=== PATIENT | female | born 1955 | race Caucasian/White ===

== ENCOUNTER 2018-04-01 19:36 | Emergency (ER) | payer MEDICAID, SELFPAY ==
[2018-04-01 20:47] VITALS: BMI 27.0
[2018-04-01] MEDS ORDERED: Sodium Chloride 0.9% 1,000 ML IV STA (20:48)
--- NOTE | 2018-04-01 21:00 | ED PDOC ---
Arrival/HPI - General Chief Complaint: Dizziness/Lightheaded Time Seen by Provider: 04/01/18 20:30 Historian: Patient - History of Present Illness Narrative History of Present Illness (Text): 04/01/18 20:52 63 year old female, whose history includes lumpectomy 6 years ago for breast cancer that is now recurring, presents to the Emergency department complaining of dizziness and vomiting. Patient states she woke up in the middle of the night with vomiting and room-spinning. Patient believes she may have eaten bad food; however, she reports experiencing a similar episode last week. Patient is scheduled for right mastectomy next week. Today, she went to [facility] to get a CT scan of the chest, abdomen, and pelvis with contrast as part of preparation for next week. Patient has not been able to keep any food down. Patient denies any fever, chills, chest pain, shortness of breath, diarrhea, urinary symptoms, back pain, neck pain, headache, or any other complaints. Time/Duration: Other (less than 24 hours) Symptom Onset: Sudden Symptom Course: Unchanged Activities at Onset: Rest Context: Home Past Medical History - Provider Review Nursing Documentation Reviewed: Yes - Endocrine/Metabolic Hx Diabetes Mellitus Type 1: Yes - Hematological/Oncological Hx Cancer: Yes (Breast CA) - Psychiatric Hx Substance Use: No - Surgical History Other/Comment: R lumpectomy - Anesthesia Hx Anesthesia: Yes Family/Social History - Physician Review Nursing Documentation Reviewed: Yes Family/Social History: Unknown Family HX Smoking Status: 2nd hand Hx Alcohol Use: No (6 years ago) Hx Substance Use: No Allergies/Home Meds Allergies/Adverse Reactions: Allergies No Known Allergies Allergy (Verified 04/01/18 20:47) Home Medications: Home Meds Medication Instructions Recorded Confirmed Fluticasone/Salmeterol [Advair 1 puff INH DAILY 04/01/18 04/01/18 250-50 Diskus] Insulin Aspart, Recombinant 15 units SQ BID 04/01/18 04/01/18 [Novolog] Insulin Degludec [Tresiba 14 units SQ DAILY 04/01/18 04/01/18 Flextouch U-100] Liraglutide [Victoza 2-Vikas] 1.8 mg SQ DAILY 04/01/18 04/01/18 Meclizine [Meclizine*] 25 mg PO PRN PRN 04/01/18 04/01/18 Review of Systems - Physician Review All systems were reviewed & negative as marked: Yes - Review of Systems Constitutional: absent: Fevers, Night Sweats Respiratory: absent: SOB Cardiovascular: absent: Chest Pain Gastrointestinal: Nausea, Vomiting. absent: Diarrhea Genitourinary Female: absent: Dysuria Musculoskeletal: absent: Back Pain, Neck Pain Neurological: Dizziness. absent: Headache Physical Exam Vital Signs Reviewed: Yes Vital Signs Temp Pulse Resp BP Pulse Ox 04/01/18 22:30 88 16 110/76 98 04/01/18 20:38 97.7 F 94 H 18 96/68 L 100 Temperature: Afebrile Blood Pressure: Hypotensive Pulse: Tachycardic Respiratory Rate: Normal Appearance: Positive for: Well-Appearing, Non-Toxic, Comfortable Pain Distress: None Mental Status: Positive for: Alert and Oriented X 3 - Systems Exam Head: Present: Atraumatic, Normocephalic Pupils: Present: PERRL Extroacular Muscles: Present: Other (nystagmus) Conjunctiva: Present: Normal Mouth: Present: Moist Mucous Membranes Neck: Present: Normal Range of Motion Respiratory/Chest: Present: Clear to Auscultation, Good Air Exchange. No: Respiratory Distress, Accessory Muscle Use Cardiovascular: Present: Regular Rate and Rhythm, Normal S1, S2. No: Murmurs Abdomen: No: Tenderness, Distention, Peritoneal Signs Back: Present: Normal Inspection Upper Extremity: Present: Normal Inspection. No: Cyanosis, Edema Lower Extremity: Present: Normal Inspection. No: Edema Neurological: Present: GCS=15, CN II-XII Intact, Speech Normal Skin: Present: Warm, Dry, Normal Color. No: Rashes Psychiatric: Present: Alert, Oriented x 3, Normal Insight, Normal Concentration Medical Decision Making ED Course and Treatment: 04/01/18 21:06 Impression: 63 year old female presents to the Emergency department complaining of dizziness and vomiting. Plan: -- CT scan of head -- Chest xray -- Blood culture, urine culture -- Urinalysis -- VBG -- Labs -- Antivert, Zofran, Sodium Chloride IV fluids -- Reassess and disposition Prior Visits: Notes and results from previous visits were reviewed. Progress Notes: EXAM: CT Head Without Intravenous Contrast Dictated and Authenticated by: Mariajose Brenner MD 04/01/2018 10:53 PM IMPRESSION: No acute intracranial abnormality. Mild chronic microvascular changes. 04/01/18 23:43 CXR Impression: As read by me, no acute disease. EXAM: US Abdomen Complete Dictated and Authenticated by: Cash Lizama MD 04/02/2018 12:05 AM IMPRESSION: Normal abdominal ultrasound. - Lab Interpretations Lab Results: 04/01/18 21:25 04/01/18 21:25 Lab Results 04/01/18 21:50: pO2 48, VBG pH 7.37, VBG pCO2 45.0, VBG HCO3 26.0, VBG Total CO2 27.4, VBG O2 Sat (Calc) 89.5 H, VBG Base Excess 0.3, VBG Potassium 4.2, Glucose 197 H, Lactate 1.3, FiO2 21.0, Sodium 138.0, Chloride 104.0, Venous Blood Potassium 4.2 04/01/18 21:25: Sodium 143, Potassium 4.2, Chloride 102, Carbon Dioxide 25, Anion Gap 20, BUN 13, Creatinine 0.5 L, Est GFR ( Amer) > 60, Est GFR ( Non-Af Amer) > 60, Random Glucose 187 H, Calcium 9.7, Total Bilirubin 0.9, AST 44 H, ALT 47, Alkaline Phosphatase 70, Lactate Dehydrogenase 542, Total Creatine Kinase 52, Troponin I < 0.01, NT-Pro-B Natriuret Pep 38.2, Total Protein 8.8 H, Albumin 4.8, Globulin 4.0, Albumin/Globulin Ratio 1.2, Lipase 376 H 04/01/18 21:25: PT 10.7, INR 0.94 04/01/18 21:25: WBC 5.8, RBC 5.21, Hgb 13.4, Hct 39.8, MCV 76.4 L, MCH 25.7, MCHC 33.7, RDW 14.4, Plt Count 350, MPV 10.5, Gran % 74.6 H, Lymph % (Auto) 22.0 , Woods % (Auto) 2.9, Eos % (Auto) 0.3 L, Baso % (Auto) 0.2, Gran # 4.34, Lymph # (Auto) 1.3, Woods # (Auto) 0.2, Eos # (Auto) 0.0, Baso # (Auto) 0.01 I have reviewed the lab results: Yes - RAD Interpretation Radiology Orders: 04/01/18 20:50 HEAD W/O CONTRAST [CT] Stat CHEST PORTABLE [RAD] Stat 04/01/18 23:05 ABDOMEN COMPLETE [US] Stat - Medication Orders Current Medication Orders: Discontinued Medications Sodium Chloride (Sodium Chloride 0.9%) 1,000 mls @ 999 mls/hr IV .Q1H1M STA Stop: 04/01/18 21:48 Last Admin: 04/01/18 21:29 Dose: 999 mls/hr eMAR Start Stop Document 04/01/18 21:29 MS (Rec: 04/01/18 21:30 [facility] [id number] Intravenous Solution Start Date 04/01/18 Start Time 21:29 End Date 04/01/18 End time 22:29 Total Infusion Time 60 Meclizine HCl (Antivert) 25 mg PO STAT STA Stop: 04/01/18 20:49 Last Admin: 04/01/18 21:29 Dose: 25 mg Ondansetron HCl (Zofran Inj) 4 mg IVP STAT STA Stop: 04/01/18 20:49 Last Admin: 04/01/18 21:30 Dose: 4 mg IVP Administration Document 04/01/18 21:30 MS (Rec: 04/01/18 21:30 MS [facility] [id number]) Charges for Administration # of IVP Administrations 1 - Scribe Statement The provider has reviewed the documentation as recorded by the Scribe Thomas Bello All medical record entries made by the Scribe were at my direction and personally dictated by me. I have reviewed the chart and agree that the record accurately reflects my personal performance of the history, physical exam, medical decision making, and the department course for this patient. I have also personally directed, reviewed, and agree with the discharge instructions and disposition. Disposition/Present on Arrival - Present on Arrival Any Indicators Present on Arrival: No History of DVT/PE: No History of Uncontrolled Diabetes: No Urinary Catheter: No History of Decub. Ulcer: No History Surgical Site Infection Following: None - Disposition Have Diagnosis and Disposition been Completed?: Yes Diagnosis: Vertigo, Elevated lipase, Vomiting Disposition: HOME/ ROUTINE Disposition Time: 00:17 Patient Plan: Discharge Condition: GOOD Discharge Instructions (ExitCare): Vertigo (a Type of Dizziness) (DC), Nausea and Vomiting, Adult (DC) Additional Instructions: Mrs Packer - Sorry that you have to go through all this right now. Zofran is for vomiting or nausea. Antivert is for the room spinning or vertigo. Return to us if any problems Good Vida with your Surgery..... Best- Dr. Francisco Melendez Referrals: Casey Haque MD [Primary Care Provider] - Follow up with primary Forms: [employer] (Danish), WORK NOTE
[2018-04-01 21:54] LABS: ALB/GLOB RATIO 1.2 (1.1-1.8); ALBUMIN 4.8 g/dL (3.0-4.8); CALCIUM 9.7 mg/dL (8.4-10.5); GFR AFRICAN-AMERICAN > 60; GFR NON-AFRICAN AMERICAN > 60; LIPASE 376 U/L (23-300)
[2018-04-01 21:59] LABS: VENOUS BLOOD GAS BASE EXCESS 0.3 mmol/L (0.0-2.0); VENOUS BLOOD GAS PO2 48 mm/Hg (30-55); VENOUS BLOOD PH 7.37 (7.32-7.43)
[2018-04-01 22:00] LABS: ALT/SGPT 47 U/L (7-56); AST/SGOT 44 U/L (14-36); BASO # 0.01 K/mm3 (0.0-2.0); BASO % 0.2 % (0.0-3.0); BLOOD UREA NITROGEN 13 mg/dL (7-21); EOS % 0.3 % (1.5-5.0); GRAN # 4.34 (1.4-6.5); GRAN % 74.6 % (50.0-68.0); HEMOGLOBIN 13.4 g/dL (12.0-16.0); LYMPH # 1.3 (1.2-3.4); MEAN CELL VOLUME 76.4 fl (80.0-105.0); MEAN CORPUSCULAR HEMOGLOBIN 25.7 pg (25.0-35.0); MEAN CORPUSCULAR HGB CONC 33.7 g/dl (31.0-37.0); MEAN PLATELET VOLUME 10.5 fl (7.0-11.0); MONO # 0.2 (0.1-0.6); MONO % 2.9 % (1.0-6.0); RBC 5.21 10^6/uL (3.5-6.1); RED CELL DISTRIBUTION WIDTH 14.4 % (11.5-14.5); WHITE BLOOD COUNT 5.8 10^3/ul (4.5-11.0)
[2018-04-01 22:06] LABS: B-TYPE NATRIURETIC PEPTIDE 38.2 pg/mL (0-450); TROPONIN I < 0.01 ng/mL
[2018-04-01 22:08] LABS: INR 0.94 (0.93-1.08); PROTHROMBIN TIME 10.7 SECONDS (9.4-12.5)
[2018-04-01 23:32] VITALS: RESP 16; O2SAT 98
[2018-04-02 01:48] VITALS: BP 112/70; PULSE 82; TEMP 97.9
--- NOTE | 2018-04-02 08:23 | CT ---
PROCEDURE: CT HEAD WITHOUT CONTRAST. HISTORY: Vertigo, Breast Cancer, COMPARISON: None available. TECHNIQUE: Axial computed tomography images were obtained through the head/brain without intravenous contrast. Radiation dose: Total exam DLP = 958 mGy-cm. This CT exam was performed using one or more of the following dose reduction techniques: Automated exposure control, adjustment of the mA and/or kV according to patient size, and/or use of iterative reconstruction technique. FINDINGS: HEMORRHAGE: No intracranial hemorrhage. BRAIN: No mass effect or edema. Mild chronic microvascular changes VENTRICLES: Unremarkable. No hydrocephalus. CALVARIUM: Unremarkable. PARANASAL SINUSES: Unremarkable as visualized. No significant inflammatory changes. MASTOID AIR CELLS: Unremarkable as visualized. No inflammatory changes. OTHER FINDINGS: The report concurs with the preliminary [facility] report IMPRESSION: No acute intracranial findings
--- NOTE | 2018-04-02 10:46 | US ---
HISTORY: ? Gallstone Pancreatitis ? COMPARISON: None. TECHNIQUE: Sonographic evaluation of the abdomen. FINDINGS: LIVER: Measures 14.4 cm. Normal echogenicity of the liver parenchyma. No mass. No intrahepatic bile duct dilatation. GALLBLADDER: Unremarkable. No gallstones. COMMON BILE DUCT: Measures 5 mm. No stones. No dilatation. PANCREAS: Unremarkable as visualized. No mass. No ductal dilatation. RIGHT KIDNEY: Measures 10.3cm. Normal echogenicity. No calculus, mass, or hydronephrosis. LEFT KIDNEY: Measures 10.1cm. Normal echogenicity. No calculus, mass, or hydronephrosis. SPLEEN: Normal in size and contour. No mass. AORTA: No aneurysmal dilatation. IVC: Unremarkable. OTHER FINDINGS: None. IMPRESSION: Unremarkable examination. No evidence of cholecystitis or pancreatitis. Preliminary interpretation of this examination was reported by [facility] at 12:05 a.m. on 04/02/2018. There is concurrence of this report with the preliminary interpretation.
--- NOTE | 2018-04-02 10:57 | RAD ---
HISTORY: vomiting/cough COMPARISON: No prior. FINDINGS: LUNGS: No active pulmonary disease. PLEURA: No significant pleural effusion identified, no pneumothorax apparent. CARDIOVASCULAR: Normal. OSSEOUS STRUCTURES: No significant abnormalities. VISUALIZED UPPER ABDOMEN: Normal. OTHER FINDINGS: None. IMPRESSION: No active disease.
== END 2018-04-02 01:19 | disposition home or self-care (01) ==
LOC: ED 19:36 → EDBD 19:36 → ED 04-02 01:19
DX: R11.10 Vomiting, unspecified (principal); R42 Dizziness and giddiness; R74.8 Abnormal levels of other serum enzymes; C50.919 Malignant neoplasm of unspecified site of unspecified female breast
CPT/HCPCS: 70450; 71045; 76700; 80053; 82550; 82803; 83615; 83690; 83880; 84484; 85025; 85610; 87040; 96361; 96374; 99285; J2405; J7030

== ENCOUNTER 2018-08-27 10:50 | Emergency (ER) | payer MEDICAID ==
[2018-08-27 11:16] VITALS: BMI 24.5
--- NOTE | 2018-08-27 11:18 | ED PDOC ---
Arrival/HPI - General Time Seen by Provider: 08/27/18 11:09 Historian: Patient, Family - History of Present Illness Narrative History of Present Illness (Text): 08/27/18 11:18 Patient is a 63 year old female who presents to the Emergency department with he r daughter for left lower extremity cramping which started last night. Per daughter, patient started experiencing severe left lower extremity cramping that lasted for several hours last night. Patient states that the pain has improved but not resolved since last night, and experiences pain when placing weight on the foot. She notes that last night her left foot felt warm, and per daughter the veins in her foot appeared swollen but now are normal and equal to contralateral side. Patient took Aspirin 325mg three times last night with last dose taken at 23:30. Patient denies fevers, chills, cough, shortness of breath, chest pain, dyspnea on exertion, abdominal pain, nausea, vomiting, diarrhea, back pain, neck pain, headache, dizziness, or any other complaint. Time/Duration: Other (Last night) Symptom Onset: Sudden Symptom Course: Improving Quality: Cramping Context: Home Past Medical History - Provider Review Nursing Documentation Reviewed: Yes - Endocrine/Metabolic Hx Diabetes Mellitus Type 1: Yes - Hematological/Oncological Hx Cancer: Yes (Breast CA) - Psychiatric Hx Substance Use: No - Surgical History Other/Comment: R lumpectomy - Anesthesia Hx Anesthesia: Yes Family/Social History - Physician Review Nursing Documentation Reviewed: Yes Family/Social History: No Known Family HX Smoking Status: 2nd hand Hx Alcohol Use: No (6 years ago) Hx Substance Use: No Allergies/Home Meds Allergies/Adverse Reactions: Allergies No Known Allergies Allergy (Verified 08/27/18 12:03) Home Medications: Home Meds Medication Instructions Recorded Confirmed Fluticasone/Salmeterol [Advair 1 puff INH DAILY 04/01/18 08/27/18 250-50 Diskus] Insulin Aspart, Recombinant 15 units SQ BID 04/01/18 08/27/18 [Novolog] Insulin Degludec [Tresiba 14 units SQ DAILY 04/01/18 08/27/18 Flextouch U-100] Liraglutide [Victoza 2-Vikas] 1.8 mg SQ DAILY 04/01/18 08/27/18 Meclizine [Meclizine*] 25 mg PO PRN PRN 04/01/18 08/27/18 Review of Systems - Physician Review All systems were reviewed & negative as marked: Yes - Review of Systems Constitutional: absent: Fevers Respiratory: absent: SOB, Cough Cardiovascular: absent: Chest Pain, [place] Gastrointestinal: absent: Abdominal Pain, Diarrhea, Nausea, Vomiting Musculoskeletal: absent: Back Pain, Neck Pain Neurological: absent: Headache, Dizziness Physical Exam - Physical Exam Narrative Physical Exam (Text): 08/27/18 11:18 Constitutional: No acute distress. Head: Normocephalic. Atraumatic. Eyes: PERRL. ENT: Moist mucous membranes. Neck: Supple. Cardiovascular: Regular rate. Chest: No tenderness. Respiratory: Clear to auscultation bilaterally. GI: Soft. Nontender. Nondistended. Back: No CVA tenderness. Musculoskeletal: No tenderness or swelling of extremities. Skin: No rash. Mild erythema of left mid foot and 1st MTP. Neurologic: Alert, no focal deficit. Vital Signs Reviewed: Yes Temperature: Afebrile Blood Pressure: Normal Pulse: Regular Respiratory Rate: Normal Appearance: Positive for: Well-Appearing Mental Status: Positive for: Alert and Oriented X 3 Medical Decision Making ED Course and Treatment: 08/27/18 11:18 Impression: 63 year old female complaining of an episode of severe left lower extremity cramping that lasted several hours last night. Differential Diagnosis included but are not limited to: muscle spasm vs. arthritis vs. gout Plan: -- Blood work -- Labs -- Left foot X-ray -- Reassess and disposition Prior Visits: Notes and results from previous visits were reviewed. Progress Notes: Patient in no acute distress. Labs and XR normal. Patient refused crutches but was agreeable to ZARI wrap. Instructed to f/u with PMD, take NSAIDs, return to ED for worsening pain, swelling, redness, or any other problem. - Lab Interpretations I have reviewed the lab results: Yes - RAD Interpretation Narrative RAD Interpretations (Text): 08/27/18 12:25 Left Foot X-ray: Dictator : Charles Cooper MD IMPRESSION: Normal left foot radiographs. Radiology Orders: 08/27/18 11:18 FOOT LEFT 3 VIEWS ROUTINE [RAD] Stat Door Fitter: Radiologist - Scribe Statement The provider has reviewed the documentation as recorded by the Scribe Jg Bolden Provider Scribe Attestation: All medical record entries made by the Scribe were at my direction and personally dictated by me. I have reviewed the chart and agree that the record accurately reflects my personal performance of the history, physical exam, medical decision making, and the department course for this patient. I have also personally directed, reviewed, and agree with the discharge instructions and disposition. Disposition/Present on Arrival - Present on Arrival Any Indicators Present on Arrival: No History of DVT/PE: No History of Uncontrolled Diabetes: No Urinary Catheter: No History Surgical Site Infection Following: None - Disposition Have Diagnosis and Disposition been Completed?: Yes Diagnosis: Foot pain Disposition Time: 12:37 Patient Plan: Discharge Patient Problems: Current Active Problems Problem Status Onset Foot pain Acute Condition: STABLE Discharge Instructions (ExitCare): Foot Sprain (DC) Referrals: Casey Haque MD [Primary Care Provider] - Follow up with primary
[2018-08-27 11:26] VITALS: RESP 18; O2SAT 96
[2018-08-27 11:51] LABS: BASO # 0.01 K/mm3 (0.0-2.0); BASO % 0.2 % (0.0-3.0); EOS # 0.1 (0.0-0.7); EOS % 1.5 % (1.5-5.0); GRAN # 2.77 (1.4-6.5); GRAN % 50.6 % (50.0-68.0); LYMPH # 2.2 (1.2-3.4); LYMPH % 39.3 % (22.0-35.0); MEAN CELL VOLUME 71.2 fl (80.0-105.0); MEAN CORPUSCULAR HEMOGLOBIN 23.2 pg (25.0-35.0); MEAN CORPUSCULAR HGB CONC 32.5 g/dl (31.0-37.0); MONO # 0.5 (0.1-0.6); MONO % 8.4 % (1.0-6.0); RBC 4.75 10^6/uL (3.5-6.1); RED CELL DISTRIBUTION WIDTH 16.8 % (11.5-14.5); WHITE BLOOD COUNT 5.5 10^3/uL (4.5-11.0)
[2018-08-27 12:00] LABS: ALB/GLOB RATIO 1.2 (1.1-1.8); ALBUMIN 4.3 g/dL (3.0-4.8); ALT/SGPT 29 U/L (7-56); AST/SGOT 23 U/L (14-36); BLOOD UREA NITROGEN 16 mg/dL (7-21); CALCIUM 9.6 mg/dL (8.4-10.5); GFR NON-AFRICAN AMERICAN > 60; URIC ACID 3.3 mg/dL (2.5-6.2)
--- NOTE | 2018-08-27 12:23 | RAD ---
Date of service: 08/27/2018 PROCEDURE: Left Foot Radiographs. HISTORY: foot pain COMPARISON: None. FINDINGS: BONES: Normal. No fracture. JOINTS: Normal. SOFT TISSUES: Normal. OTHER FINDINGS: None. IMPRESSION: Normal left foot radiographs.
[2018-08-27 13:32] VITALS: PULSE 72; TEMP 98.2
[2018-08-27 13:33] VITALS: BP 124/65
== END 2018-08-27 12:58 | disposition home or self-care (01) ==
LOC: ED 10:50
DX: M79.672 Pain in left foot (principal); Z85.3 Personal history of malignant neoplasm of breast

== ENCOUNTER 2018-12-13 15:40 | Outpatient (CLI) | payer MEDICAID | END 2018-12-13 15:41 | disposition home or self-care (01) | LOC: RAD 15:40 ==